=== PATIENT | male | born 1985 | race Two or more races ===

== ENCOUNTER → 2022-03-31 08:46 | Outpatient (CLI) | payer OTHER | END | disposition home or self-care (01) | LOC: LAB 08:46 | PROVIDERS: ATTEND Internal Medicine Hematology & Oncology | DX: D50.8 Other iron deficiency anemias (principal); R79.9 Abnormal finding of blood chemistry, unspecified; I10 Essential (primary) hypertension; R74.02 Elevation of levels of lactic acid dehydrogenase [LDH]; K76.89 Other specified diseases of liver; D63.8 Anemia in other chronic diseases classified elsewhere; D55.0 Anemia due to glucose-6-phosphate dehydrogenase [G6PD] deficiency; B20 Human immunodeficiency virus [HIV] disease; B17.9 Acute viral hepatitis, unspecified; Z11.59 Encounter for screening for other viral diseases; B27.90 Infectious mononucleosis, unspecified without complication; R97.0 Elevated carcinoembryonic antigen [CEA]; R97.8 Other abnormal tumor markers; R97.20 Elevated prostate specific antigen [PSA]; L63.1 Alopecia universalis; D69.6 Thrombocytopenia, unspecified ==